=== PATIENT | male | born 1950 | race Caucasian/White ===

== ENCOUNTER 2017-12-13 08:49 | Emergency (ER) | payer MEDICARE, MEDICAID ==
[~2017-12-13] VITALS: Ht 167.6 cm; Wt 49.9 kg
[2017-12-13 08:49] VITALS: BP 0/0
[~2017-12-13 08:49] MED LIST: FERR-7 PO; HYDR8TAB46 PO; LORA-655 PO; METH10T PO; TRAZ150T79 PO; VENL150C PO
[2017-12-13] MEDS ORDERED: CALCIUM CHLOR(10%) 100MG/ML 10ML SYRINGE IV ONE (08:50)
[2017-12-13] MEDS ORDERED: SODIUM BICARBONATE 8.4% INJ 50ML SYRINGE IV ONE (08:50)
[2017-12-13] MEDS ORDERED: EPINEPHrine HCL 1 MG/10 ML SYRG IV ONE (08:50)
[2017-12-13] MEDS ORDERED: SODIUM BICARBONATE 8.4% INJ 50ML SYRINGE ONE (09:02)
[2017-12-13] MEDS ORDERED: EPINEPHrine HCL 1 MG/10 ML SYRG ONE (09:03)
== END 2017-12-13 15:54 | disposition expired ==
LOC: EDBD 08:49 → ER 08:49
DX: I46.9 Cardiac arrest, cause unspecified (principal); I11.0 Hypertensive heart disease with heart failure; I50.9 Heart failure, unspecified; I48.92 Unspecified atrial flutter; Z85.01 Personal history of malignant neoplasm of esophagus
CPT/HCPCS: 92950; 99285; J0171